=== PATIENT | male | born 1975 ===

== ENCOUNTER 2018-12-20 16:56 | Emergency (ER) | payer OTHER ==
[2018-12-20 18:02] VITALS: BP 132/91
[2018-12-20] MEDS ORDERED: HYDROcodone/ACETAMIN 5-325 MG* 1 TAB PO ONE ×2 (18:09→18:41)
--- NOTE | 2018-12-20 18:30 | UC ---
Elbow Pain - HPI Summary HPI Summary: fell today while skiing landing on left elbow---painful to straighten and supinate---n/m/c intact distal to injury and bilaterally equal - History of Current Complaint Chief Complaint: UCUpperExtremity Stated Complaint: LEFT ARM INJURY Time Seen by Provider: 12/20/18 18:06 Hx Obtained From: Patient Onset/Duration: Hours - 3 Severity Initially: Moderate Severity Currently: Moderate Pain Intensity: 5 Pain Scale Used: 0-10 Numeric Location Of Pain: Is Discrete @ - left elbow Character: Aching, Throbbing, Stiffness Aggravating Factor(s): Movement Alleviating Factor(s): Immobilization Associated Signs And Symptoms: Positive: Swelling - Allergies/Home Medications Allergies/Adverse Reactions: Allergies Allergy/AdvReac Type Severity Reaction Status Date / Time No Known Allergies Allergy Verified 12/20/18 17:54 Home Medications: Home Medications Ibuprofen TAB* [Advil TAB*] 400 mg PO Q6H PRN 12/20/18 [History Confirmed ] Metoprolol Succinate [Toprol Xl] 25 mg PO DAILY 12/20/18 [History Confirmed ] PMH/Surg Hx/FS Hx/Imm Hx Previously Healthy: No Cardiovascular History: Hypertension - Surgical History Surgical History: Yes Surgery Procedure, Year, and Place: meningioma sx. - Family History Known Family History: Positive: None - Social History Occupation: Employed Full-time Lives: With Family Alcohol Use: Occasionally Substance Use Type: None Smoking Status (MU): Former Smoker When Did the Patient Quit Smoking/Using Tobacco: 2012 Review of Systems All Other Systems Reviewed And Are Negative: Yes Constitutional: Positive: Negative Skin: Positive: Negative Eyes: Positive: Negative ENT: Positive: Negative Respiratory: Positive: Negative Cardiovascular: Positive: Negative Gastrointestinal: Positive: Negative Genitourinary: Positive: Negative Motor: Positive: Decreased ROM - left elbow Neurovascular: Positive: Negative Musculoskeletal: Positive: Arthralgia - left elbow, Edema - left elbow Neurological: Positive: Negative Psychological: Positive: Negative Is Patient Immunocompromised?: No Physical Exam Triage Information Reviewed: Yes Appearance: Well-Appearing, Pain Distress, Obese Vital Signs: Initial Vital Signs Temp 97.3 F 12/20/18 17:57 Pulse 76 12/20/18 17:57 Resp 14 12/20/18 17:57 BP 132/91 12/20/18 17:57 Pulse Ox 100 12/20/18 17:57 Vital Signs Reviewed: Yes Eye Exam: Normal Eyes: Positive: Conjunctiva Clear ENT Exam: Normal ENT: Positive: Normal ENT inspection, Hearing grossly normal. Negative: Nasal congestion, Nasal drainage, Trismus, Muffled voice, Hoarse voice, Dental tenderness, Sinus tenderness Dental Exam: Normal Neck exam: Normal Neck: Positive: Supple, Nontender, No Lymphadenopathy Respiratory Exam: Normal Respiratory: Positive: Chest non-tender, Lungs clear, Normal breath sounds, No respiratory distress, No accessory muscle use Cardiovascular Exam: Normal Cardiovascular: Positive: RRR, Pulses Normal, Brisk Capillary Refill Musculoskeletal Exam: Other Musculoskeletal: Positive: Strength Limited @ - left elbow, ROM Limited @ - left elbow, Edema @ - left elbow Neurological Exam: Normal Neurological: Positive: Alert, Muscle Tone Normal Psychological Exam: Normal Skin Exam: Normal Diagnostics - Radiology No standard instances Radiology Interpretation Completed By: ED Physician - + fracture Elbow Pain Course/Dx - Course Course Of Treatment: RICE, Sling Ibuprofen, Hydrocodone, follow with orthopedic md on Saturday when you return to home - Differential Dx/Diagnosis Provider Diagnosis: Left elbow fracture Discharge - Sign-Out/Discharge Documenting (check all that apply): Patient Departure All imaging exams completed and their final reports reviewed: No - Discharge Plan Condition: Stable Disposition: HOME Prescriptions: Hydrocodone/Acetaminophen [Hydrocodone-Acetamin 5-325 mg] 1 each PO Q4HR PRN # 15 tablet MDD 6 PRN Reason: pain Patient Education Materials: Hydrocodone/Acetaminophen (By mouth), Ibuprofen ( By mouth), Elbow Fracture (ED), R.I.C.E. Treatment (ED) Referrals: No Primary Care Phys,NOPCP [Primary Care Provider] - Additional Instructions: Call the orthopedic MD in your home town on Saturday for an appointment early this week--- - Billing Disposition and Condition Condition: STABLE Disposition: Home
--- NOTE | 2018-12-21 09:51 | UC ---
- Progress Note Progress Note: over read of XR Please notify pt no FX f/u with orthopedist is still advised if elbow is not feeling normal Course/Dx - Diagnoses Provider Diagnoses: Left elbow fracture Discharge - Sign-Out/Discharge Documenting (check all that apply): Post-Discharge Follow Up All imaging exams completed and their final reports reviewed: Yes - Discharge Plan Condition: Stable Disposition: HOME Prescriptions: Hydrocodone/Acetaminophen [Hydrocodone-Acetamin 5-325 mg] 1 each PO Q4HR PRN # 15 tablet MDD 6 PRN Reason: pain Patient Education Materials: Hydrocodone/Acetaminophen (By mouth), Ibuprofen ( By mouth), Elbow Fracture (ED), R.I.C.E. Treatment (ED) Referrals: No Primary Care Phys,NOPCP [Primary Care Provider] - Additional Instructions: Call the orthopedic MD in your home town on Saturday for an appointment early this week--- - Billing Disposition and Condition Condition: STABLE Disposition: Home
== END 2018-12-20 19:12 | disposition home or self-care (01) ==
LOC: UCCORT 16:56
DX: S42.402A Unspecified fracture of lower end of left humerus, initial encounter for closed fracture (principal); I10 Essential (primary) hypertension; Z79.899 Other long term (current) drug therapy; Z87.891 Personal history of nicotine dependence; W19.XXXA Unspecified fall, initial encounter; Y92.9 Unspecified place or not applicable
CPT/HCPCS: 99203; G0463